=== PATIENT | male | born 1970 | race Caucasian/White ===

== ENCOUNTER 2024-10-15 17:29 | Inpatient (IN) ==
[2024-10-15] MEDS ORDERED: IOPAMIDOL 100 ML BOTTLE IV ONE (17:30)
[2024-10-15] MEDS: CEFEPIME 2 GM VIAL IV ONE (18:55)
[2024-10-15 18:57] LABS: Basophils # (Auto) 0.03 K/mcL (0.00-0.30); Basophils % (Auto) 0.2 % (0.0-2.0); Eosinophils # (Auto) 0.08 K/mcL (0.00-0.70); Eosinophils % (Auto) 0.7 % (0.0-7.0); Hematocrit 47.1 % (40.1-51.0); Hemoglobin 15.3 g/dL (13.7-17.5); Lymphocytes % (Auto) 8.3 % (15.5-49.0); Mean Cell Volume 91.3 fL (80.0-100.0); Mean Corpuscular HGB Conc 32.5 g/dL (31.0-36.0); Monocytes # (Auto) 1.05 K/mcL (0.10-0.90); Monocytes % (Auto) 8.7 % (1.0-12.0); Neutrophils % (Auto) 81.8 % (38.0-78.0); Platelet Count 324 K/mcL (140-440); RBC 5.16 M/mcL (4.63-6.08); Red Cell Distribution Width 12.5 % (11.5-14.5); WBC 12.1 K/mcL (4.5-11.0)
[2024-10-15 19:01] LABS: Erythrocyte Sedimentation Rate 44 mm/hr (0-20)
[2024-10-15 19:15] LABS: C-Reactive Protein 7.3 mg/dL (0.03-0.80)
[2024-10-15] MEDS: VANCOMYCIN 1,500 MG in 0.9 % SODIUM CHLORIDE 500 ML IV ONE (19:23)
[2024-10-15 19:30] LABS: ALT/SGPT 42 U/L (<40); AST/SGOT 24 U/L (<40); Albumin 3.5 gm/dL (3.2-5.2); Albumin/Globulin Ratio 1.1 (1.0-2.3); Alkaline Phosphatase 91 U/L (39-117); Bilirubin,Total 0.5 mg/dL (0.1-1.0); Blood Urea Nitrogen 13 mg/dL (6-20); Calcium 8.9 mg/dL (8.6-10.4); Carbon Dioxide 26 mmol/L (22-30); Chloride 97 mmol/L (96-108); Globulin 3.1 gm/dL (2.2-3.7); Glomerular Filtration Rate 96; Glucose 92 mg/dL (70-105); Potassium 4.1 mmol/L (3.3-5.1); Sodium 133 mmol/L (133-145)
[2024-10-15] MEDS: ACETAMINOPHEN 325 MG TABLET PO ONE (19:49)
[2024-10-15] MEDS: 0.9 % SODIUM CHLORIDE 1,000 ML IV ONE (20:17)
[2024-10-15 21:14] LABS: Appearance,Urine Clear (Clear); Bilirubin,Urine Negative (Negative); Color,Urine Yellow; Glucose,Urine (UA) Negative (Negative); Ketones,Urine 15 mg/dL (Negative); Leukocyte Esterase,Urine Negative /uL (Negative); Nitrate,Urine Negative (Negative); PH,Urine 5.5 (5.0-9.0); Protein,Urine 30 mg/dL (Negative); Urine Blood Trace-intact ery/mcL (Negative); Urine RBC 2 /hpf (0-3); Urine Squamous Epithelial Cell 2 /hpf (0-4); Urine WBC 1 /hpf (0-4); Urobilinogen,Urine Normal
[2024-10-16] MEDS ORDERED: ACETAMINOPHEN 325 MG TABLET PO PRN (00:21)
[2024-10-16] MEDS ORDERED: traZODone HCL 50 MG TABLET PO PRN (00:21)
[2024-10-16] MEDS ORDERED: ONDANSETRON 4 MG/2 ML VIAL IV PRN (00:21)
[2024-10-16] MEDS ORDERED: IPRATROPIUM/ALBUTEROL 3 ML AMPUL.NEB NEB PRN (00:21)
[2024-10-16] MEDS: 0.9 % SODIUM CHLORIDE 1,000 ML IV SCH (00:24)
[2024-10-16] MEDS: PIPERACILLIN SODIUM/TAZOBACTAM 3.375 GM in DEXTROSE 5% IN WATER 50 ML IV SCH (00:39)
[2024-10-16] MEDS: PIPERACILLIN SODIUM/TAZOBACTAM 3.375 GM in DEXTROSE 5% IN WATER 50 ML IV ONE (01:08)
[2024-10-16] MEDS: 0.9 % SODIUM CHLORIDE 10 ML SYRINGE IV SCH (04:04)
[2024-10-16] MEDS: PIPERACILLIN SODIUM/TAZOBACTAM 3.375 GM in DEXTROSE 5% IN WATER 100 ML IV SCH (05:21)
[2024-10-16 06:26] LABS: Blood Urea Nitrogen 12 mg/dL (6-20); Calcium 8.4 mg/dL (8.6-10.4); Carbon Dioxide 27 mmol/L (22-30); Chloride 103 mmol/L (96-108); Glomerular Filtration Rate 96; Glucose 93 mg/dL (70-105); Sodium 136 mmol/L (133-145)
[2024-10-16 06:28] LABS: Basophils # (Auto) 0.04 K/mcL (0.00-0.30); Basophils % (Auto) 0.3 % (0.0-2.0); Eosinophils # (Auto) 0.13 K/mcL (0.00-0.70); Eosinophils % (Auto) 1.1 % (0.0-7.0); Hemoglobin 13.3 g/dL (13.7-17.5); Lymphocytes # (Auto) 0.88 K/mcL (1.50-4.80); Lymphocytes % (Auto) 7.6 % (15.5-49.0); Mean Cell Volume 97.8 fL (80.0-100.0); Mean Corpuscular HGB Conc 30.2 g/dL (31.0-36.0); Mean Platelet Volume 9.3 fL (8.8-12.5); Monocytes # (Auto) 1.17 K/mcL (0.10-0.90); Monocytes % (Auto) 10.1 % (1.0-12.0); Neutrophils % (Auto) 80.3 % (38.0-78.0); Platelet Count 234 K/mcL (140-440); Red Cell Distribution Width 12.7 % (11.5-14.5); WBC 11.5 K/mcL (4.5-11.0)
[2024-10-16] MEDS: DOCUSATE SODIUM 100 MG CAPSULE PO SCH (09:30)
[2024-10-16] MEDS ORDERED: [UNRECOGNIZED DRUG - MIXTURE] PR PRN (11:06)
[2024-10-16] MEDS: ENOXAPARIN 40 MG/0.4 ML SYRINGE SQ SCH (11:07)
[2024-10-16] MEDS ORDERED: CYCLOBENZAPRINE 10 MG TABLET PO PRN (11:18)
[2024-10-16] MEDS ORDERED: MELATONIN 3 MG TABLET PO PRN (11:23)
[2024-10-16] MEDS: MAGNESIUM OXIDE 400 MG TABLET PO SCH (20:10)
[2024-10-16] MEDS: traMADol 50 MG TABLET PO PRN (20:11)
[2024-10-16] MEDS: SENNOSIDES 1 TABLET PO SCH (20:17)
[2024-10-17 06:56] LABS: Basophils # (Auto) 0.04 K/mcL (0.00-0.30); Basophils % (Auto) 0.5 % (0.0-2.0); Eosinophils # (Auto) 0.18 K/mcL (0.00-0.70); Eosinophils % (Auto) 2.2 % (0.0-7.0); Hematocrit 44.3 % (40.1-51.0); Hemoglobin 14.2 g/dL (13.7-17.5); Lymphocytes # (Auto) 1.11 K/mcL (1.50-4.80); Lymphocytes % (Auto) 13.5 % (15.5-49.0); Mean Cell Volume 92.7 fL (80.0-100.0); Mean Corpuscular HGB Conc 32.1 g/dL (31.0-36.0); Mean Platelet Volume 9.3 fL (8.8-12.5); Monocytes # (Auto) 0.93 K/mcL (0.10-0.90); Monocytes % (Auto) 11.3 % (1.0-12.0); Neutrophils % (Auto) 71.9 % (38.0-78.0); Platelet Count 297 K/mcL (140-440); RBC 4.78 M/mcL (4.63-6.08); Red Cell Distribution Width 12.6 % (11.5-14.5); WBC 8.2 K/mcL (4.5-11.0)
[2024-10-17 07:10] LABS: Blood Urea Nitrogen 8 mg/dL (6-20); Carbon Dioxide 27 mmol/L (22-30); Chloride 102 mmol/L (96-108); Glomerular Filtration Rate 96; Glucose 77 mg/dL (70-105); Potassium 3.9 mmol/L (3.3-5.1); Sodium 139 mmol/L (133-145)
[2024-10-17] MEDS: VITAMIN D3 125 MCG TABLET PO SCH (09:00)
[2024-10-17] MEDS: VITAMIN B COMPLEX 1 CAPSULE PO SCH (09:00)
[2024-10-17] MEDS: ZINC SULFATE 50 MG CAPSULE PO SCH (09:00)
[2024-10-17] MEDS: THYROID, PORK 60 MG TABLET PO SCH (09:01)
[2024-10-17] MEDS: LIDOCAINE 4% TOP PATCH TOPICAL SCH (09:14)
[2024-10-18 06:09] LABS: Basophils # (Auto) 0.04 K/mcL (0.00-0.30); Basophils % (Auto) 0.5 % (0.0-2.0); Eosinophils # (Auto) 0.21 K/mcL (0.00-0.70); Eosinophils % (Auto) 2.4 % (0.0-7.0); Hematocrit 46.7 % (40.1-51.0); Hemoglobin 14.9 g/dL (13.7-17.5); Lymphocytes # (Auto) 1.21 K/mcL (1.50-4.80); Mean Cell Volume 92.7 fL (80.0-100.0); Mean Corpuscular HGB Conc 31.9 g/dL (31.0-36.0); Mean Platelet Volume 8.8 fL (8.8-12.5); Monocytes # (Auto) 0.86 K/mcL (0.10-0.90); Monocytes % (Auto) 9.9 % (1.0-12.0); Neutrophils % (Auto) 72.6 % (38.0-78.0); Platelet Count 307 K/mcL (140-440); RBC 5.04 M/mcL (4.63-6.08); Red Cell Distribution Width 12.5 % (11.5-14.5); WBC 8.7 K/mcL (4.5-11.0)
[2024-10-18 06:29] LABS: Blood Urea Nitrogen 9 mg/dL (6-20); Calcium 9.5 mg/dL (8.6-10.4); Carbon Dioxide 30 mmol/L (22-30); Chloride 101 mmol/L (96-108); Glomerular Filtration Rate 96; Glucose 83 mg/dL (70-105); Potassium 4.2 mmol/L (3.3-5.1); Sodium 140 mmol/L (133-145)
[2024-10-18] MEDS: cefTRIAXone 2 GM in DEXTROSE 5% IN WATER 50 ML IV SCH (10:35)
[2024-10-19 06:35] LABS: Basophils # (Auto) 0.05 K/mcL (0.00-0.30); Basophils % (Auto) 0.6 % (0.0-2.0); Eosinophils # (Auto) 0.21 K/mcL (0.00-0.70); Eosinophils % (Auto) 2.4 % (0.0-7.0); Hematocrit 48.1 % (40.1-51.0); Hemoglobin 15.1 g/dL (13.7-17.5); Lymphocytes # (Auto) 1.15 K/mcL (1.50-4.80); Lymphocytes % (Auto) 13.4 % (15.5-49.0); Mean Cell Volume 92.7 fL (80.0-100.0); Mean Corpuscular HGB Conc 31.4 g/dL (31.0-36.0); Mean Platelet Volume 8.8 fL (8.8-12.5); Monocytes # (Auto) 0.74 K/mcL (0.10-0.90); Monocytes % (Auto) 8.6 % (1.0-12.0); Neutrophils % (Auto) 74.3 % (38.0-78.0); Platelet Count 317 K/mcL (140-440); RBC 5.19 M/mcL (4.63-6.08); Red Cell Distribution Width 12.6 % (11.5-14.5); WBC 8.6 K/mcL (4.5-11.0)
[2024-10-19 06:49] LABS: Blood Urea Nitrogen 10 mg/dL (6-20); Calcium 9.3 mg/dL (8.6-10.4); Carbon Dioxide 30 mmol/L (22-30); Chloride 103 mmol/L (96-108); Glomerular Filtration Rate 96; Glucose 93 mg/dL (70-105); Sodium 141 mmol/L (133-145)
[2024-10-19 07:49] VITALS: TEMP 98.2
[2024-10-19] MEDS ORDERED: 0.9 % SODIUM CHLORIDE 10 ML SYRINGE IV PRN (09:25)
[2024-10-19] MEDS ORDERED: LIDOCAINE 1% 10 ML VIAL SQ ONE (10:59)
[2024-10-19] MEDS ORDERED: SODIUM CHLORIDE IRRIG SOLUTION 500 ML BOTTLE IRR ONE (10:59)
[2024-10-19 12:39] VITALS: O2SAT 100
[2024-10-19] MEDS ORDERED: 0.9 % SODIUM CHLORIDE 10 ML SYRINGE IV SCH (21:00)
== END 2024-10-19 11:50 | disposition home or self-care (01) | DRG 289 ==
LOC: ED 17:29 → MEDSUR 10-16 00:11
PROVIDERS: ADMIT Internal Medicine; ATTEND Internal Medicine